=== PATIENT | male | born 1985 | race Caucasian/White ===

== ENCOUNTER 2017-03-20 12:03 | Emergency (ER) | payer BC ==
[2017-03-20] MEDS ORDERED: NORMAL SALINE 1,000 ML IV ONE (12:29)
[2017-03-20] MEDS ORDERED: ONDANSETRON HCL/PF 2 MG/ML VIAL IV ONE (12:29)
[2017-03-20] MEDS ORDERED: PROMETHAZINE HCL 25 MG in DEXTROSE 5 % IN WATER 50 ML IV ONE ×2 (12:29)
[2017-03-20] MEDS ORDERED: ONDANSETRON HCL/PF 2 MG/ML VIAL ONE (12:38)
[2017-03-20 12:51] LABS: Hematocrit 45.9 % (42.0-52.0); Hemoglobin 15.6 gm/dL (13.5-18.0); Mean Cell Volume 89.6 fl (78-100); Mean Corpuscular Hemoglobin 30.5 pg (27-31); Mean Platelet Volume 10.1 fl (6.0-9.5); Neutrophil # 3.9 K/mm3 (1.3-6.0); Neutrophil % 53.2 % (42-75.0); Platelet Count 249 K/mm3 (150-450); Red Blood Count 5.12 M/mm3 (4.7-6.0); Red Cell Distribution Width 12.6 % (11.5-14.0); White Blood Count 7.3 K/mm3 (4.0-10.5)
--- NOTE | 2017-03-20 12:53 | ERNOTE ---
Abdominal HPI - General Chief Complaint: Nausea/Vomiting Time Seen by Provider: 03/20/17 12:21 Source: patient Exam Limitations: no limitations - Immun/Allergies/Home Medications Immunizatons: IMMUNIZATION HX Immunizations Up to Date Yes History of Influenza Vaccine No Hx Pneumococcal Vaccination No Allergies/Adverse Reactions: Allergies No Known Allergies Allergy (Verified 03/20/17 12:11) Home Medications: HOME MEDICATIONS Ibuprofen/Diphenhydramine HCl [Advil Pm Liqui-Gels] 1 each PO HS 06/16/16 [Last Taken Unknown] Promethazine HCl [Phenergan (Promethazine)] 25 mg PO Q4H PRN #20 tab 03/20/17 [ Last Taken Unknown] - History of Present Illness Narrative: Patient is here for vomiting that started last night. He had tacos around 21:00 , also five drinks. Two hours later he started to vomit and has been vomiting every since, no diarrhea, left lower abdominal pain. He has multiple similar episodes per year which he contributes to eating somali food. He smokes THC occasionally, last two weeks ago. Date (Duration): 03/19/17 Time (Timing): 23:00 Timing: constant Quality: mild Associated Symptoms: Present: nausea, vomiting. Absent: diarrhea-mucous, fever/ chills, shortness of breath Review of Systems - Review of Systems Constitutional: Absent: recent illness, fever EYE: Absent: double vision ENT: Absent: nose congestion Respiratory: Absent: shortness of breath Cardiology: Absent: chest pain Gastrointestinal/Abdominal: Present: See HPI, nausea, vomiting, abdominal pain. Absent: diarrhea Genitourinary: Present: no symptoms reported Musculoskeletal: Absent: back pain Skin: Absent: rash Neurological: Absent: headache, weakness, numbness - Patient's Past Medical History Patient History - Medical: Alcohol Abuse Patient History - Cardiac/Respiratory: No pertinent hx Patient History - Cancer: No Hx of Cancer Patient History - Surgical Procedures: Other Patient History - Other: None - Family History Mother Family History - Medical: No pertinent hx Family History - Cardiac/Respiratory: No pertinent hx Father Family History - Medical: No pertinent hx Family History - Cardiac/Respiratory: No pertinent hx Grandmother-Maternal Family History - Medical: History Unknown Family History - Cardiac/Respiratory: No pertinent hx - Social History Living Situations: significant other Abuse History: No History of abuse Psych History: No pertinent hx Smoking Status: Current every day smoker Have you smoked in the past 12 months: Yes Do you dip or chew tobacco: Yes Alcohol Use: heavy Drug Use: marijuana - Immunizations Immunizations Up to Date: Yes Hx Pneumococcal Vaccination: No History of Influenza Vaccine: No Physical Exam - Physical Exam General Appearance: Present: wd/wn, alert, no apparent distress Respiratory: Present: no respiratory distress, normal breath sounds, no accessory muscle use, lungs clear Cardiovascular/Chest: Present: regular rate, rhythm, no murmur Gastrointestinal/Abdominal: Present: normal bowel sounds, nondistended, soft, tenderness - mid abdomen and left lower quadrant Extremity Exam: Present: no edema Neurological Exam: Present: alert, oriented, normal mood/affect Skin Exam: Present: normal color, warm/dry ED Progress - Results and Orders Patient's Lab Results:: I have reviewed the patient's lab results. - Vital Signs Patient's Vital Signs:: I have reviewed the patient's vital signs. Vital Signs: Vital Signs 03/20/17 12:08 Temperature 36.9 C Pulse Rate 88 Respiratory 15 Rate Blood Pressure 127/78 O2 Sat by Pulse 96 Oximetry - Progress/Reassessment Chief Complaint: Nausea/Vomiting Progress Note-Subjective: 03/20/17 13:30 patient resting, no vomiting currently, discussed results 03/20/17 14:24 patient states that he is still vomiting (small amount of vomit in bags in trash ), resting comfortably 03/20/17 15:04 patient resting, no vomiting currently Departure Clinical Impression: Vomiting Qualifiers: Vomiting type: unspecified Vomiting Intractability: non-intractable Nausea presence: with nausea Qualified Code(s): R11.2 - Nausea with vomiting, unspecified - Departure Disposition: Home self-care Condition: Stable Instructions: Nausea, Adult Additional Instructions: call the clinic to get established with a primary care doctor Prescriptions: Promethazine HCl [Phenergan (Promethazine)] 25 mg PO Q4H PRN #20 tab PRN Reason: nausea/vomiting
[2017-03-20 12:57] LABS: Albumin * 4.4 gm/dl (3.4-5.0); Anion Gap 19.4 mmol/L (6.8-13.8); BUN/Creatinine Ratio 16.9 (9.0-21.6); Bilirubin, Total 0.3 mg/dL (0.0-1.1); Ca. Corrected For Albumin 7.9 mg/dL (8.4-10.2); Calcium * 8.5 mg/dL (7.9-10.9); Carbon Dioxide 23.3 mmol/L (24-32.6); Potassium 3.7 mmol/L (3.4-4.6); Total Protein 7.9 gm/dL (6.2-8.2)
[2017-03-20] MEDS ORDERED: KETOROLAC TROMETHAMINE 30 MG/ML VIAL IV ONE (13:29)
[2017-03-20] MEDS ORDERED: KETOROLAC TROMETHAMINE 30 MG/ML VIAL ONE (13:34)
[2017-03-20 13:38] VITALS: BP 102/54
[2017-03-20] MEDS ORDERED: METOCLOPRAMIDE HCL 5 MG/ML VIAL IV ONE (14:23)
[2017-03-20] MEDS ORDERED: METOCLOPRAMIDE HCL 5 MG/ML VIAL ONE (14:26)
== END 2017-03-20 15:11 | disposition home or self-care (01) ==
LOC: ER 12:03
DX: R11.2 Nausea with vomiting, unspecified (principal); F17.200 Nicotine dependence, unspecified, uncomplicated

== ENCOUNTER 2017-06-28 20:23 | Emergency (ER) | payer BC ==
[2017-06-28] MEDS ORDERED: ONDANSETRON HCL/PF 2 MG/ML VIAL IV ONE ×2 (21:06→21:48)
[2017-06-28] MEDS ORDERED: LORazepam 2 MG/ML DISP.SYRIN IV ONE (21:07)
[2017-06-28] MEDS ORDERED: NORMAL SALINE 1,000 ML IV ONE (21:08)
[2017-06-28] MEDS ORDERED: ONDANSETRON HCL/PF 2 MG/ML VIAL ONE ×2 (21:09→21:57)
[2017-06-28] MEDS ORDERED: LORazepam 2 MG/ML DISP.SYRIN ONE (21:10)
--- NOTE | 2017-06-28 21:14 | ERNOTE ---
<Peg Reynoso - Last Filed: 06/28/17 22:01> Medical Problem HPI - Narrative Date of Service: 06/28/17 - General Chief Complaint: Nausea/Vomiting Time Seen by Provider: 06/28/17 21:01 Source: patient, RN notes reviewed, old records Exam Limitations: clinical condition - Immun/Allergies/Home Medications Immunizations: IMMUNIZATION HX Immunizations Up to Date Yes History of Influenza Vaccine Yes Hx Pneumococcal Vaccination No Allergies/Adverse Reactions: Allergies No Known Allergies Allergy (Verified 03/20/17 12:11) Home Medications: HOME MEDICATIONS Ibuprofen/Diphenhydramine HCl [Advil Pm Liqui-Gels] 1 each PO HS 06/16/16 [Last Taken Unknown] Prochlorperazine Maleate [Compazine] 10 mg PO QID PRN #10 tab 06/29/17 [Last Taken Unknown] - Pain Score Pain Score #1 Pain Score: 8 - History of Present History Narrative: Raymond is a 32 year old male who presents to the ER with c/o LLQ ab pain and recurrent vomiting x2 days. denies metallic taste in mouth. denies fever. Timing: constant, getting worse Severity: moderate Review of Systems - Review of Systems Constitutional: Present: fatigue, malaise. Absent: fever EYE: Present: no symptoms reported ENT: Present: no symptoms reported Respiratory: Present: no symptoms reported Cardiology: Present: no symptoms reported Gastrointestinal/Abdominal: Present: nausea, vomiting, abdominal pain, eating less, drinking less Genitourinary: Present: no symptoms reported Musculoskeletal: Present: no symptoms reported Skin: Present: no symptoms reported Neurological: Present: no symptoms reported Endocrine: Present: no symptoms reported Hematologic/Lymphatic: Present: no symptoms reported Psych: Present: no symptoms reported All Other Systems: All systems neg except as marked - Patient's Past Medical History Patient History - Medical: Alcohol Abuse Patient History - Cardiac/Respiratory: No pertinent hx Patient History - Cancer: No Hx of Cancer Patient History - Surgical Procedures: Other Patient History - Other: None - Family History Mother Family History - Medical: No pertinent hx Family History - Cardiac/Respiratory: No pertinent hx Family History - Cancer: History Unknown Father Family History - Medical: No pertinent hx Family History - Cardiac/Respiratory: No pertinent hx Family History - Cancer: History Unknown Grandmother-Maternal Family History - Medical: History Unknown Family History - Cardiac/Respiratory: No pertinent hx Family History - Cancer: History Unknown - Social History Living Situations: spouse Abuse History: No History of abuse Psych History: No pertinent hx Smoking Status: Current every day smoker Have you smoked in the past 12 months: Yes Do you dip or chew tobacco: No Patient requests Smoking Cessation Consult: No Initiate information on Smoking Cessation: No Alcohol Use: occasionally Drug Use: none - Immunizations Immunizations Up to Date: Yes Hx Pneumococcal Vaccination: No History of Influenza Vaccine: Yes Physical Exam - Physical Exam General Appearance: Present: alert, moderate distress Head Exam: Present: normal inspection, no evidence of injury Eye Exam: Normal inspection: bilateral Neck: Present: normal inspection, nontender Respiratory: Present: no respiratory distress, normal breath sounds, no accessory muscle use, chest nontender, lungs clear Cardiovascular/Chest: Present: regular rate, rhythm, normal peripheral pulses Gastrointestinal/Abdominal: Present: tenderness - moderate - severe LLQ pain, guarding Back Exam: Present: normal inspection, no vertebral tenderness Extremity Exam: Present: normal inspection, non-tender Neurological Exam: Present: alert, oriented, normal mood/affect Skin Exam: Present: normal color, warm/dry ED Progress - Results and Orders Results and Orders: Laboratory Tests 06/28/17 21:19 WBC 9.8 Hgb 17.4 Hct 52.2 H Plt Count 258 Neutrophils % 44.8 Laboratory Tests 06/28/17 21:19 Sodium 141 Potassium 4.2 Chloride 99 Carbon Dioxide 30.4 Anion Gap 15.8 H BUN 11 Creatinine 0.98 Random Glucose 100 AST 27 ALT 35 Alkaline Phosphatase 107 Total Protein 8.9 H Amylase 74 Lipase 138 Ethyl Alcohol 165.0 H - Vital Signs Vital Signs: Vital Signs 06/28/17 20:50 Temperature 36.7 C Pulse Rate 91 Respiratory 18 Rate Blood Pressure 135/92 O2 Sat by Pulse 98 Oximetry - Progress/Reassessment Chief Complaint: Nausea/Vomiting Progress:: Re-examined - Transfer of Care Physician Sign Out: Peg Reynoso Brief History: 32 year old male who presents to er with c/o severe LLQ pain and vomiting x 3 days. awaiting urine tests, ab xray, pain management. currently receiving iv fluids. Receiving Physician: Mohamud Bar Pending Results: Pain-control, X-ray results Expected Disposition: Discharge Departure Clinical Impression: Dehydration Abdominal pain Qualifiers: Abdominal location: left lower quadrant Qualified Code(s): R10.32 - Left lower quadrant pain Cyclic vomiting syndrome Qualifiers: Vomiting Intractability: non-intractable Nausea presence: with nausea Qualified Code(s): G43.A0 - Cyclical vomiting, not intractable - Departure Disposition: Home self-care Condition: Fair Instructions: Nausea and Vomiting, Adult, [id number] Additional Instructions: give your stomach a rest for the rest of the night. Drink clear liquids (with some sugar) such as gatorade, or juice half and half with water or oral rehydrating fluids such as pedialyte for 24 hours. After that then slowly resume your normal diet. Avoid alcohol. Take medication as needed. Prescriptions: Prochlorperazine Maleate [Compazine] 10 mg PO QID PRN #10 tab PRN Reason: Nausea <Mohamud Bar - Last Filed: 06/29/17 01:00> Medical Problem HPI - Immun/Allergies/Home Medications Immunizations: IMMUNIZATION HX Immunizations Up to Date Yes History of Influenza Vaccine Yes Hx Pneumococcal Vaccination No ED Progress - Vital Signs Vital Signs: Vital Signs 06/28/17 20:50 Temperature 36.7 C Pulse Rate 91 Respiratory 18 Rate Blood Pressure 135/92 O2 Sat by Pulse 98 Oximetry - Progress/Reassessment Progress Note-Subjective: 06/29/17 00:49 compazine helped the patient's nausea. still has some abdominal soreness.
[2017-06-28 21:28] LABS: Hematocrit 52.2 % (42.0-52.0); Hemoglobin 17.4 gm/dL (13.5-18.0); Mean Cell Volume 90.3 fl (78-100); Mean Corpuscular Hemoglobin 30.1 pg (27-31); Mean Corpuscular Hgb Conc 33.3 g/dl (32-36); Mean Platelet Volume 9.7 fl (6.0-9.5); Neutrophil # 4.4 K/mm3 (1.3-6.0); Neutrophil % 44.8 % (42-75.0); Platelet Count 258 K/mm3 (150-450); Red Blood Count 5.78 M/mm3 (4.7-6.0); Red Cell Distribution Width 12.9 % (11.5-14.0); White Blood Count 9.8 K/mm3 (4.0-10.5)
[2017-06-28 21:35] LABS: Albumin * 4.7 gm/dl (3.4-5.0); Anion Gap 15.8 mmol/L (6.8-13.8); BUN/Creatinine Ratio 11.2 (9.0-21.6); Bilirubin, Total 0.3 mg/dL (0.0-1.1); Ca. Corrected For Albumin 8.2 mg/dL (8.4-10.2); Calcium * 9.1 mg/dL (7.9-10.9); Carbon Dioxide 30.4 mmol/L (24-32.6); Potassium 4.2 mmol/L (3.4-4.6); Total Protein 8.9 gm/dL (6.2-8.2)
[2017-06-28] MEDS ORDERED: MORPHINE SULFATE 4 MG/ML SYRG IV ONE (21:48)
[2017-06-28] MEDS ORDERED: MORPHINE SULFATE 4 MG/ML SYRG ONE (21:57)
[2017-06-28] MEDS ORDERED: PROCHLORPERAZINE EDISYLATE 5 MG/ML VIAL IV ONE (23:31)
[2017-06-28] MEDS ORDERED: PROCHLORPERAZINE EDISYLATE 5 MG/ML VIAL ONE (23:36)
[2017-06-29] MEDS ORDERED: ONDANSETRON 4 MG TAB.RAPDIS PO ONE (00:56)
[2017-06-29] MEDS ORDERED: PROCHLORPERAZINE MALEATE 10 MG TABLET PO ONE (00:56)
[2017-06-29] MEDS ORDERED: ONDANSETRON 4 MG TAB.RAPDIS ONE (01:07)
[2017-06-29] MEDS ORDERED: PROCHLORPERAZINE MALEATE 10 MG TABLET ONE (01:07)
[2017-06-29 06:20] VITALS: BP 142/78
== END 2017-06-29 01:17 | disposition home or self-care (01) ==
LOC: ER 20:23
DX: E86.0 Dehydration (principal); R10.32 Left lower quadrant pain; F17.200 Nicotine dependence, unspecified, uncomplicated; G43.A0 Cyclical vomiting, in migraine, not intractable
CPT/HCPCS: 36415; 74019; 80053; 82150; 83690; 85025; 96372; 99284; G0481; J2405

== ENCOUNTER 2017-06-29 12:05 | Emergency (ER) | payer BC ==
--- NOTE | 2017-06-29 12:53 | ERNOTE ---
Medical Problem HPI - Narrative Date of Service: 06/29/17 - General Chief Complaint: Nausea/Vomiting Time Seen by Provider: 06/29/17 12:36 Source: patient Exam Limitations: no limitations - Immun/Allergies/Home Medications Immunizations: IMMUNIZATION HX Immunizations Up to Date Yes History of Influenza Vaccine Yes Hx Pneumococcal Vaccination No Allergies/Adverse Reactions: Allergies No Known Allergies Allergy (Verified 06/29/17 12:28) Home Medications: HOME MEDICATIONS Ondansetron [Zofran Odt] 4 mg PO Q6H PRN #20 tab 06/29/17 [Last Taken Unknown] chlorproMAZINE HCL [Thorazine] 10 mg PO Q6H PRN #30 tab 06/29/17 [Last Taken Unknown] - History of Present History Narrative: Pt. comes in with c/o nausea and vomiting for 4 days. Pt. states that he occasionally smokes pot but states that we are misdiagnosing pt. calling what he has cyclic vomiting syndrome. Pt. denies any SOB, CP, diarrhea, fever, but does states that he also has LUQ pain and heart burn. Pt. was seen last night for similar symptoms and was treated for dehydration. Review of Systems - Review of Systems Constitutional: Present: no symptoms reported. Absent: fever, chills, weakness , fatigue, malaise EYE: Present: no symptoms reported ENT: Present: no symptoms reported Respiratory: Present: no symptoms reported. Absent: shortness of breath, cough , wheezing Cardiology: Present: no symptoms reported. Absent: chest pain, palpitations, edema Gastrointestinal/Abdominal: Present: nausea, vomiting, abdominal pain. Absent: diarrhea, constipation Genitourinary: Present: no symptoms reported. Absent: frequency, decreased urinary output Musculoskeletal: Present: no symptoms reported. Absent: back pain, joint pain Skin: Present: no symptoms reported. Absent: rash, change in hair/nails Neurological: Present: no symptoms reported. Absent: headache, dizziness/light- headedness, numbness, tingling All Other Systems: All systems neg except as marked - Patient's Past Medical History Patient History - Medical: Alcohol Abuse Patient History - Cardiac/Respiratory: No pertinent hx Patient History - Cancer: No Hx of Cancer Patient History - Surgical Procedures: Colonoscopy, Other Patient History - Other: None - Family History Mother Family History - Medical: No pertinent hx Family History - Cardiac/Respiratory: No pertinent hx Family History - Cancer: History Unknown Father Family History - Medical: No pertinent hx Family History - Cardiac/Respiratory: No pertinent hx Family History - Cancer: History Unknown Grandmother-Maternal Family History - Medical: History Unknown Family History - Cardiac/Respiratory: No pertinent hx Family History - Cancer: History Unknown - Social History Living Situations: significant other Abuse History: No History of abuse Psych History: No pertinent hx Smoking Status: Current every day smoker Have you smoked in the past 12 months: Yes Do you dip or chew tobacco: No Alcohol Use: occasionally Drug Use: none - Immunizations Immunizations Up to Date: Yes Hx Pneumococcal Vaccination: No History of Influenza Vaccine: Yes Physical Exam - Physical Exam General Appearance: Present: wd/wn, alert, no apparent distress Head Exam: Present: normal inspection, no evidence of injury Eye Exam: Normal inspection: bilateral Ears, Nose, Throat: Present: normal ENT inspection, normal pharynx Neck: Present: normal inspection, nontender, supple, full range of motion. Absent: lymphadenopathy (R), lymphadenopathy (L) Respiratory: Present: no respiratory distress, normal breath sounds, no accessory muscle use, chest nontender, lungs clear Cardiovascular/Chest: Present: regular rate, rhythm, no murmur, normal peripheral pulses Gastrointestinal/Abdominal: Present: normal bowel sounds, nontender, nondistended, soft, no organomegaly Back Exam: Present: normal inspection Extremity Exam: Present: normal inspection Neurological Exam: Present: alert, oriented, normal mood/affect, no motor/ sensory deficits Skin Exam: Present: normal color, warm/dry. Absent: pallor, skin rash ED Progress - Results and Orders Patient's Lab Results:: I have reviewed the patient's lab results. Results and Orders: Reveiwed pt's labs from last night and feel that they are likely unchanged so pt. should be referred to GI - Vital Signs Patient's Vital Signs:: I have reviewed the patient's vital signs. Vital Signs: Vital Signs 06/29/17 12:24 Temperature 37.0 C Pulse Rate 75 Respiratory 20 Rate Blood Pressure 121/83 O2 Sat by Pulse 97 Oximetry - Progress/Reassessment Chief Complaint: Nausea/Vomiting Progress:: Improved Departure Clinical Impression: Cyclic vomiting syndrome Qualifiers: Vomiting Intractability: intractable Nausea presence: with nausea Qualified Code(s): G43.A1 - Cyclical vomiting, intractable - Departure Disposition: Home self-care Condition: Good Instructions: Cyclic Vomiting Syndrome, Pediatric Additional Instructions: Please call gastroenterology at [facility] [address] [address] Contact Information As soon as possible for first available appointment. Take Zofran first and if still vomiting take thorazine. Prescriptions: chlorproMAZINE HCL [Thorazine] 10 mg PO Q6H PRN #30 tab PRN Reason: Nausea And Vomiting Ondansetron [Zofran Odt] 4 mg PO Q6H PRN #20 tab PRN Reason: Nausea
[2017-06-29] MEDS ORDERED: ONDANSETRON 4 MG TAB.RAPDIS PO ONE (13:15)
[2017-06-29] MEDS ORDERED: ONDANSETRON 4 MG TAB.RAPDIS ONE (13:20)
[2017-06-29] MEDS ORDERED: diphenhydrAMINE HCL 50 MG/ML VIAL IM ONE (13:23)
[2017-06-29 18:54] VITALS: BP 123/84
== END 2017-06-29 14:40 | disposition home or self-care (01) ==
LOC: ER 12:05
DX: F17.200 Nicotine dependence, unspecified, uncomplicated; G43.A1 Cyclical vomiting, in migraine, intractable

== ENCOUNTER 2017-08-02 11:01 | Emergency (ER) | payer BC ==
[2017-08-02] MEDS ORDERED: ONDANSETRON HCL/PF 2 MG/ML VIAL IV ONE (11:20)
[2017-08-02] MEDS ORDERED: NORMAL SALINE 1,000 ML IV ONE ×2 (11:20→13:32)
[2017-08-02] MEDS ORDERED: PROMETHAZINE HCL 25 MG/ML AMPUL IM ONE (11:20)
[2017-08-02 11:35] LABS: Hematocrit 49.5 % (42.0-52.0); Mean Cell Volume 88.7 fl (78-100); Mean Corpuscular Hemoglobin 30.5 pg (27-31); Mean Corpuscular Hgb Conc 34.3 g/dl (32-36); Mean Platelet Volume 9.4 fl (6.0-9.5); Neutrophil # 8.9 K/mm3 (1.3-6.0); Neutrophil % 71.9 % (42-75.0); Platelet Count 242 K/mm3 (150-450); Red Blood Count 5.58 M/mm3 (4.7-6.0); Red Cell Distribution Width 12.7 % (11.5-14.0); White Blood Count 12.4 K/mm3 (4.0-10.5)
[2017-08-02] MEDS ORDERED: ONDANSETRON HCL/PF 2 MG/ML VIAL ONE (11:49)
[2017-08-02] MEDS ORDERED: PROMETHAZINE HCL 25 MG/ML AMPUL ONE (11:49)
[2017-08-02 11:54] LABS: Albumin * 4.6 gm/dl (3.4-5.0); Anion Gap 19.7 mmol/L (6.8-13.8); BUN/Creatinine Ratio 11.5 (9.0-21.6); Bilirubin, Total 0.4 mg/dL (0.0-1.1); Ca. Corrected For Albumin 8.3 mg/dL (8.4-10.2); Calcium * 9.1 mg/dL (7.9-10.9); Carbon Dioxide 18.9 mmol/L (24-32.6); Potassium 3.6 mmol/L (3.4-4.6); Total Protein 8.4 gm/dL (6.2-8.2)
[2017-08-02 12:23] LABS: Urine Bilirubin Negative (NEGATIVE); Urine Blood Negative /ul (NEGATIVE); Urine Ketone 50 mg/dL (NEGATIVE); Urine Nitrite Negative (NEGATIVE); Urine Protein 100 mg/dL (NEGATIVE); Urine Urobilinogen Normal (NORMAL); Urine pH 7.5 pH (5.0-7.0)
[2017-08-02] MEDS ORDERED: diphenhydrAMINE HCL 50 MG/ML VIAL IV ONE (12:28)
[2017-08-02] MEDS ORDERED: METOCLOPRAMIDE HCL 5 MG/ML VIAL IV ONE (12:28)
[2017-08-02 12:33] LABS: Urine Appearance Clear; Urine Bacteria TRACE; Urine Color Yellow; Urine RBC None Seen /hpf (0-5); Urine WBC 0-5 /hpf (0-5)
[2017-08-02] MEDS ORDERED: METOCLOPRAMIDE HCL 5 MG/ML VIAL ONE (12:40)
[2017-08-02] MEDS ORDERED: diphenhydrAMINE HCL 50 MG/ML VIAL ONE (12:40)
[2017-08-02 12:46] LABS: Cocaine Ur Negative (NEGATIVE); Urine Barbiturate Negative (NEGATIVE); Urine Benzodiazepines Negative (NEGATIVE); Urine Opiates Negative (NEGATIVE); Urine PCP Negative (NEGATIVE)
[2017-08-02 12:50] LABS: Urine THC Positive (NEGATIVE)
--- NOTE | 2017-08-02 13:56 | ERNOTE ---
Medical Problem HPI - Narrative Date of Service: 08/02/17 - General Chief Complaint: Nausea/Vomiting Time Seen by Provider: 08/02/17 11:17 Source: patient Exam Limitations: no limitations - Immun/Allergies/Home Medications Immunizations: IMMUNIZATION HX Immunizations Up to Date Yes History of Influenza Vaccine No Hx Pneumococcal Vaccination No Allergies/Adverse Reactions: Allergies No Known Allergies Allergy (Verified 06/29/17 12:28) Home Medications: HOME MEDICATIONS Promethazine HCl [Phenergan (Promethazine)] 25 mg PO Q6H PRN #20 tab 08/02/17 [ Last Taken Unknown] - History of Present History Narrative: Patient presents to the ED for vomiting. He relates he has been vomiting since last night. No diarrhea. Upper abdominal pain with this began after vomiting. No vomiting of blood. No fever. he does have a Hx of cyclical vomiting syndrome and he relates this is exactly like what he has in the past. Nothing makes this better or worse. Timing: constant Severity: moderate Modifying Factors - (Improves): Present: other - nothing Modifying Factors - (Worsens): Present: other - nothing Review of Systems - Review of Systems Constitutional: Absent: fever ENT: Absent: sore throat Respiratory: Absent: shortness of breath Cardiology: Absent: chest pain Gastrointestinal/Abdominal: Present: See HPI Genitourinary: Absent: dysuria Musculoskeletal: Present: no symptoms reported Skin: Absent: rash Neurological: Absent: weakness - Patient's Past Medical History Patient History - Medical: Alcohol Abuse Patient History - Cardiac/Respiratory: No pertinent hx Patient History - Cancer: No Hx of Cancer Patient History - Surgical Procedures: Colonoscopy, Other Patient History - Other: None - Family History Mother Family History - Medical: No pertinent hx Family History - Cardiac/Respiratory: No pertinent hx Family History - Cancer: History Unknown Father Family History - Medical: No pertinent hx Family History - Cardiac/Respiratory: No pertinent hx Family History - Cancer: History Unknown Grandmother-Maternal Family History - Medical: History Unknown Family History - Cardiac/Respiratory: No pertinent hx Family History - Cancer: History Unknown - Social History Living Situations: home Abuse History: No History of abuse Psych History: No pertinent hx Smoking Status: Current every day smoker Have you smoked in the past 12 months: Yes Do you dip or chew tobacco: No Alcohol Use: none Drug Use: marijuana - Immunizations Immunizations Up to Date: Yes Hx Pneumococcal Vaccination: No History of Influenza Vaccine: No Physical Exam - Physical Exam General Appearance: Present: alert, no apparent distress Head Exam: Present: normal inspection, no evidence of injury Eye Exam: Normal inspection: bilateral, PERRL: bilateral Ears, Nose, Throat: Present: normal ENT inspection. Absent: pharyngeal erythema , dry mucous membranes Neck: Present: normal inspection Respiratory: Present: no respiratory distress, normal breath sounds, no accessory muscle use, lungs clear Cardiovascular/Chest: Present: regular rate, rhythm, normal peripheral pulses Gastrointestinal/Abdominal: Present: normal bowel sounds, nondistended, soft, other - mild epigastric tenderness. No guarding or rebound. No peritoneal signs. Non-surgical exam Back Exam: Present: normal range of motion Extremity Exam: Present: normal inspection Neurological Exam: Present: alert, no motor/sensory deficits Skin Exam: Present: normal color, warm/dry. Absent: skin rash ED Progress - Results and Orders Patient's Lab Results:: I have reviewed the patient's lab results. - Vital Signs Patient's Vital Signs:: I have reviewed the patient's vital signs. Vital Signs: Vital Signs 08/02/17 08/02/17 08/02/17 11:07 12:06 12:45 Temperature 36.3 C L 36.7 C Pulse Rate 82 103 H 111 H Respiratory 18 18 18 Rate Blood Pressure 136/90 130/98 O2 Sat by Pulse 99 98 98 Oximetry 08/02/17 13:16 Temperature 36.1 C L Pulse Rate 96 Respiratory 15 Rate Blood Pressure 101/59 O2 Sat by Pulse 99 Oximetry - X-Ray X-Ray #1 X-Ray: abdomen Interpretation: Interp. by me X-ray Comments: I reviewed official radiology report - Progress/Reassessment Chief Complaint: Nausea/Vomiting Progress:: Improved Progress Note-Subjective: 08/02/17 13:52 Improved with meds and IV fluids. has cyclical vomiting syndrome. THC on UDS and ealcohol level noted. I discussed this with him. HE feels like going home. I discussed warning signs and reasons to return as well as the need for close f/u. Non-surgical exam, improved, no further vomiting. Departure Clinical Impression: Vomiting - Departure Disposition: Home self-care Condition: Stable Instructions: Nausea, Adult Additional Instructions: Rest. FLuids. Follow-up with a doctor in 3 days for a re-check. Return here for fever, increased pain or if your condition worsens or changes in any way. Prescriptions: Promethazine HCl [Phenergan (Promethazine)] 25 mg PO Q6H PRN #20 tab PRN Reason: nausea/vomiting
[2017-08-02 14:18] VITALS: BP 112/62
== END 2017-08-02 14:17 | disposition home or self-care (01) ==
LOC: ER 11:01
DX: R11.10 Vomiting, unspecified (principal); F17.200 Nicotine dependence, unspecified, uncomplicated
CPT/HCPCS: 36415; 74019; 80053; 80307; 81001; 83690; 85025; 87400; 96372; 96374; 96375; 99284; G0481; J2405